=== PATIENT | male | born 1950 | race Caucasian/White ===

== ENCOUNTER 2019-04-05 10:41 | Day surgery (SDC) | payer MEDICARE, BC ==
[~2019-04-05] VITALS: Ht 175.3 cm; Wt 103.4 kg
[~2019-04-05 10:41] MED LIST: AMLO10TA PO; ATOR10TA70 PO; BUDE10.2 INH; CHOL50004 PO; CLOP75TA15 PO; CYA500T PO; FURO-150 PO; INSU100C4 SQ; INSU100V9 SQ; LOSA100T57 PO; PRAZ5CAP PO; TRAZ150T78 PO
[2019-04-05] MEDS ORDERED: normal saline 1000ml 1,000 ML IV SCH (11:05)
[2019-04-05 11:15] VITALS: BP 166/59
[2019-04-05] MEDS ORDERED: dextrose 50%-water 50ml dispensing syringe IV ONE (11:21)
--- NOTE | 2019-04-05 11:26 | NUR ---
PT'S blood sugar was 52, denied any symptoms. Administered 25 grams of D50. Will reassess BS in 15 min. Family at bedside. Education given.
[2019-04-05 11:31] LABS: BASOPHILS % (AUTO) 0.3 % (0-1); EOSINOPHILS # (AUTO) 2.7 X10'3 (0-0.9); EOSINOPHILS % (AUTO) 34.6 % (0-6); HEMATOCRIT 24.4 % (42.0-52.0); HEMOGLOBIN 8.3 g/dl (14.0-17.9); LYMPHOCYTES # (AUTO) 1.1 X10'3 (1.1-4.8); LYMPHOCYTES % (AUTO) 13.7 % (21-51); MEAN CORPUSCULAR HEMOGLOBIN 32.2 PG (27.0-31.0); MEAN CORPUSCULAR HGB CONC 33.9 g/dL (33.0-36.5); MEAN PLATELET VOLUME 8.6 FL (7.4-10.4); MONOCYTES # (AUTO) 0.2 X10'3 (0-0.9); MONOCYTES % (AUTO) 2.5 % (2-12); NEUTROPHILS # (AUTO) 3.8 X10'3 (1.8-7.7); NEUTROPHILS % (AUTO) 48.9 % (42-75); PLATELET COUNT 176 X10'3 (140-440); RED BLOOD COUNT 2.57 X10'6 (4.70-6.10); RED CELL DISTRIBUTION WIDTH 14.4 % (11.5-14.5); WHITE BLOOD COUNT 7.9 X10'3 (4.5-11.0)
[2019-04-05 11:44] LABS: ALBUMIN 2.2 G/DL (3.4-5.0); ANION GAP 6 (8-16); BLOOD UREA NITROGEN 70 MG/DL (7-18); CALCIUM 8.6 MG/DL (8.5-10.1); CHLORIDE 105 MMOL/L (99-107); CREATININE 4.67 MG/DL (0.60-1.10); GLUCOSE 60 MG/DL (70-104); POTASSIUM 3.9 MMOL/L (3.5-5.1); SODIUM 139 MMOL/L (135-145); TOTAL CARBON DIOXIDE 28.3 MMOL/L (24-32); eGFR 13 ML/MIN
[2019-04-05] MEDS ORDERED: DILT240C90 PO (11:47)
[2019-04-05] MEDS ORDERED: PRAZ2CAP2 PO (11:47)
[2019-04-05] MEDS ORDERED: CLON0.2T PO (11:47)
[2019-04-05] MEDS ORDERED: HYDR100T27 PO (11:47)
[2019-04-05] MEDS ORDERED: METO25TA6 PO (11:47)
[2019-04-05] MEDS ORDERED: ISOS30TA6 PO (11:47)
[2019-04-05] MEDS ORDERED: ASPI81TA52 PO (11:47)
[2019-04-05] MEDS ORDERED: MULT-1085 PO (11:47)
[2019-04-05] MEDS ORDERED: BUPR150T8 PO (11:47)
[2019-04-05] MEDS ORDERED: ATOR40TA71 PO (11:47)
[2019-04-05] MEDS ORDERED: DOXE10CA2 PO (11:47)
[2019-04-05 11:56] LABS: PLATELET ESTIMATE NORMAL; TOTAL CELLS COUNTED 100
[2019-04-05] MEDS ORDERED: midazolam 2 mg/2 ml injection IV PRN (12:35)
[2019-04-05] MEDS ORDERED: fentaNYL/PF 50MCG/1 ML 2ML syringe IV PRN (12:35)
[2019-04-05] MEDS ORDERED: heparin 1,000 units/ml 10ml inj ICATH ONE (12:35)
[2019-04-05] MEDS ORDERED: LIDOcaine 1%/PF 5ML 10 MG/ML VIAL SQ ONE (12:35)
[2019-04-05] MEDS ORDERED: heparin 1,000unit/ml 10ml vial 10 ML ONE (12:38)
[2019-04-05] MEDS ORDERED: LIDOcaine 1%/PF 5ML 10 MG/ML VIAL ONE (12:38)
[2019-04-05] MEDS ORDERED: midazolam 2 mg/2 ml injection ONE (12:53)
[2019-04-05] MEDS ORDERED: fentaNYL/PF 50MCG/1 ML 2ML syringe ONE (12:53)
[2019-04-05 13:45] VITALS: BP 170/65
[2019-04-05 14:00] VITALS: BP 165/70
[2019-04-05 14:15] VITALS: BP 171/61
[2019-04-05 14:30] VITALS: BP 172/52
== END 2019-04-05 14:55 | disposition home or self-care (01) ==
LOC: SSTAY O 10:41
PROVIDERS: ATTEND Radiology Diagnostic Radiology
DX: E11.22 Type 2 diabetes mellitus with diabetic chronic kidney disease (principal); N18.4 Chronic kidney disease, stage 4 (severe); Z88.8 Allergy status to other drugs, medicaments and biological substances; Z79.82 Long term (current) use of aspirin; Z79.899 Other long term (current) drug therapy; Z79.4 Long term (current) use of insulin
CPT/HCPCS: 36415; 36558; 76937; 77001; 80048; 82948; 85025; 99152; 99153; C1750; C1894; J1644; J2001; J2250; J3010; J7030; A9270

== ENCOUNTER 2019-11-03 11:04 | Day surgery (SDC) | payer MEDICARE ==
[~2019-11-03] VITALS: Ht 175.3 cm; Wt 94.7 kg
[~2019-11-03 11:04] MED LIST changes: -AMLO10TA PO; +ASPI81TA52 PO; -ATOR10TA70 PO; +ATOR40TA71 PO; +BUPR150T8 PO; +CLON0.2T PO; -CYA500T PO; +CYAN500T63 PO; +DILT240C90 PO; +DOXE10CA2 PO; +HYDR100T27 PO; +ISOS30TA6 PO; -LOSA100T57 PO; +METO25TA6 PO; +MULT-1085 PO; +PRAZ2CAP2 PO; -PRAZ5CAP PO; -TRAZ150T78 PO
[2019-11-03] MEDS ORDERED: normal saline 1000ml 1,000 ML IV SCH (11:25)
[2019-11-03] MEDS ORDERED: VIT1TABL50 PO (11:38)
[2019-11-03] MEDS ORDERED: diabetic med (11:38)
[2019-11-03] MEDS ORDERED: PHO667C PO (11:38)
[2019-11-03 11:57] LABS: BASOPHILS % (AUTO) 0.3 % (0-1); EOSINOPHILS # (AUTO) 3.2 X10'3 (0-0.9); HEMATOCRIT 34.9 % (42.0-52.0); HEMOGLOBIN 11.9 g/dl (14.0-17.9); LYMPHOCYTES % (AUTO) 10.5 % (21-51); MEAN CORPUSCULAR HEMOGLOBIN 33.1 PG (27.0-31.0); MEAN CORPUSCULAR HGB CONC 34.2 g/dL (33.0-36.5); MEAN CORPUSCULAR VOLUME 96.8 FL (78-98); MEAN PLATELET VOLUME 7.5 FL (7.4-10.4); MONOCYTES # (AUTO) 0.2 X10'3 (0-0.9); MONOCYTES % (AUTO) 2.3 % (2-12); NEUTROPHILS # (AUTO) 4.9 X10'3 (1.8-7.7); NEUTROPHILS % (AUTO) 52.9 % (42-75); PLATELET COUNT 235 X10'3 (140-440); RED BLOOD COUNT 3.61 X10'6 (4.70-6.10); RED CELL DISTRIBUTION WIDTH 13.2 % (11.5-14.5); WHITE BLOOD COUNT 9.4 X10'3 (4.5-11.0)
[2019-11-03 12:00] VITALS: BP 152/68
[2019-11-03 12:02] LABS: ALBUMIN 2.7 G/DL (3.4-5.0); ANION GAP 10 (8-16); BLOOD UREA NITROGEN 108 MG/DL (7-18); BUN/CREATININE RATIO 14.2 (5.4-32.0); CALCIUM 8.4 MG/DL (8.5-10.1); CHLORIDE 100 MMOL/L (99-107); CREATININE 7.59 MG/DL (0.60-1.10); GLUCOSE 208 MG/DL (70-104); POTASSIUM 4.1 MMOL/L (3.5-5.1); SODIUM 137 MMOL/L (135-145); TOTAL CARBON DIOXIDE 27.5 MMOL/L (24-32); eGFR 7 ML/MIN
[2019-11-03] MEDS ORDERED: midazolam 2 mg/2 ml injection IV PRN (12:25)
[2019-11-03] MEDS ORDERED: fentaNYL/PF 50MCG/1 ML 2ML syringe IV PRN (12:25)
[2019-11-03] MEDS ORDERED: LIDOcaine 1% (10mg/ml) 2ml vial SQ ONE (12:25)
[2019-11-03] MEDS ORDERED: heparin 1,000 units/ml 10ml inj ICATH ONE (12:25)
[2019-11-03 12:43] LABS: TOTAL CELLS COUNTED 100
[2019-11-03 12:44] LABS: PLATELET ESTIMATE NORMAL
[2019-11-03] MEDS ORDERED: fentaNYL/PF 50MCG/1 ML 2ML syringe ONE (12:47)
[2019-11-03] MEDS ORDERED: heparin 1,000unit/ml 10ml vial 10 ML ONE (12:47)
[2019-11-03] MEDS ORDERED: midazolam 2 mg/2 ml injection ONE (12:47)
[2019-11-03] MEDS ORDERED: LIDOcaine 1%/PF 5ML 10 MG/ML VIAL ONE (12:47)
[2019-11-03 14:00] VITALS: BP 166/81
[2019-11-03 14:15] VITALS: BP 154/65
[2019-11-03 14:30] VITALS: BP 151/107
[2019-11-03 14:45] VITALS: BP 170/62
[2019-11-03 15:00] VITALS: BP 149/57
== END 2019-11-03 15:00 | disposition home or self-care (01) ==
LOC: SSTAY O 11:04
PROVIDERS: ATTEND Radiology Diagnostic Radiology
DX: T82.868A Thrombosis due to vascular prosthetic devices, implants and grafts, initial encounter (principal); N18.9 Chronic kidney disease, unspecified; Z88.8 Allergy status to other drugs, medicaments and biological substances; Z79.899 Other long term (current) drug therapy; Z79.82 Long term (current) use of aspirin; Y83.2 Surgical operation with anastomosis, bypass or graft as the cause of abnormal reaction of the patient, or of later complication, without mention of misadventure at the time of the procedure; Y92.89 Other specified places as the place of occurrence of the external cause
CPT/HCPCS: 36415; 36558; 76937; 77001; 80048; 82948; 85025; 85610; 99152; 99153; C1750; C1769; C1894; J1644; J2250; J3010; J7030; A9270

== ENCOUNTER 2019-11-10 08:31 | Day surgery (SDC) | payer MEDICARE ==
[~2019-11-10] VITALS: Ht 175.3 cm; Wt 96.3 kg
[2019-11-10] VITALS (7 sets, daily range): BP systolic 123–161; BP diastolic 56–75
[~2019-11-10 08:31] MED LIST changes: -BUDE10.2 INH; -CLON0.2T PO; -CLOP75TA15 PO; -HYDR100T27 PO; -INSU100C4 SQ; -INSU100V9 SQ; +PHO667C PO; +VIT1TABL50 PO; +diabetic med
[2019-11-10] MEDS ORDERED: LIDOcaine 1%/PF 5ML 10 MG/ML VIAL SQ ONE (08:50)
[2019-11-10] MEDS ORDERED: heparin 1,000 UNITS/NS 500ml 500 ML ICATH ONE (08:50)
[2019-11-10] MEDS ORDERED: fentaNYL/PF 50MCG/1 ML 2ML syringe IV PRN (08:50)
[2019-11-10] MEDS ORDERED: normal saline 1000ml 1,000 ML IV SCH (08:50)
[2019-11-10] MEDS ORDERED: midazolam 2 mg/2 ml injection IV PRN (08:50)
[2019-11-10] MEDS ORDERED: LIDOcaine 1% (10mg/ml) 2ml vial SQ ONE (08:55)
[2019-11-10] MEDS ORDERED: heparin 1,000 UNITS/NS 500ml 500 ML ONE (09:29)
[2019-11-10] MEDS ORDERED: LIDOcaine 1%/PF 5ML 10 MG/ML VIAL ONE (09:29)
[2019-11-10] MEDS ORDERED: iohexol 300mg/ml 100ml inj. ONE (09:29)
[2019-11-10] MEDS ORDERED: fentaNYL/PF 50MCG/1 ML 2ML syringe ONE ×3 (09:29→10:35)
[2019-11-10] MEDS ORDERED: midazolam 2 mg/2 ml injection ONE ×2 (09:29→10:12)
[2019-11-10 09:35] LABS: BASOPHILS # (AUTO) 0.1 X10'3 (0-0.2); BASOPHILS % (AUTO) 0.8 % (0-1); EOSINOPHILS # (AUTO) 2.5 X10'3 (0-0.9); EOSINOPHILS % (AUTO) 30.9 % (0-6); HEMATOCRIT 30.3 % (42.0-52.0); HEMOGLOBIN 10.2 g/dl (14.0-17.9); LYMPHOCYTES # (AUTO) 1.2 X10'3 (1.1-4.8); LYMPHOCYTES % (AUTO) 14.6 % (21-51); MEAN CORPUSCULAR HGB CONC 33.6 g/dL (33.0-36.5); MEAN CORPUSCULAR VOLUME 98.2 FL (78-98); MEAN PLATELET VOLUME 7.8 FL (7.4-10.4); MONOCYTES # (AUTO) 0.3 X10'3 (0-0.9); MONOCYTES % (AUTO) 3.8 % (2-12); NEUTROPHILS % (AUTO) 49.9 % (42-75); PLATELET COUNT 194 X10'3 (140-440); RED BLOOD COUNT 3.09 X10'6 (4.70-6.10); RED CELL DISTRIBUTION WIDTH 13.4 % (11.5-14.5)
[2019-11-10 09:45] LABS: ALBUMIN 2.4 G/DL (3.4-5.0); ANION GAP 8 (8-16); BLOOD UREA NITROGEN 90 MG/DL (7-18); BUN/CREATININE RATIO 14.4 (5.4-32.0); CALCIUM 8.4 MG/DL (8.5-10.1); CHLORIDE 102 MMOL/L (99-107); CREATININE 6.23 MG/DL (0.60-1.10); GLUCOSE 325 MG/DL (70-104); POTASSIUM 4.3 MMOL/L (3.5-5.1); SODIUM 137 MMOL/L (135-145); TOTAL CARBON DIOXIDE 26.7 MMOL/L (24-32); eGFR 9 ML/MIN
[2019-11-10 10:49] LABS: TOTAL CELLS COUNTED 100
[2019-11-10 10:52] LABS: PLATELET ESTIMATE NORMAL
== END 2019-11-10 13:00 | disposition home or self-care (01) ==
LOC: SSTAY O 08:31
PROVIDERS: ATTEND Radiology Diagnostic Radiology
DX: T82.858A Stenosis of other vascular prosthetic devices, implants and grafts, initial encounter (principal); I25.10 Atherosclerotic heart disease of native coronary artery without angina pectoris; N40.0 Benign prostatic hyperplasia without lower urinary tract symptoms; I12.9 Hypertensive chronic kidney disease with stage 1 through stage 4 chronic kidney disease, or unspecified chronic kidney disease; E10.22 Type 1 diabetes mellitus with diabetic chronic kidney disease; N18.3 Chronic kidney disease, stage 3 (moderate); Z88.8 Allergy status to other drugs, medicaments and biological substances; Z79.899 Other long term (current) drug therapy; Z79.82 Long term (current) use of aspirin; Z80.41 Family history of malignant neoplasm of ovary; Y83.2 Surgical operation with anastomosis, bypass or graft as the cause of abnormal reaction of the patient, or of later complication, without mention of misadventure at the time of the procedure; Y92.89 Other specified places as the place of occurrence of the external cause
CPT/HCPCS: 36415; 36902; 80048; 85025; 85610; 99152; 99153; C1725; C1769; C1894; J1644; J2001; J2250; J3010; Q9967; J7030

== ENCOUNTER 2020-11-06 12:34 | Emergency (ER) | payer OTHER, MEDICARE ==
[~2020-11-06] VITALS: Ht 175.3 cm; Wt 103.4 kg
[~2020-11-06 12:34] MED LIST changes: -CYAN500T63 PO; +CYAN500T64 PO
[2020-11-06] MEDS ORDERED: furosemide 10 MG/1 ML 10ml inj IV ONE (14:10)
[2020-11-06 14:34] LABS: BASOPHILS # (AUTO) 0.1 X10'3 (0-0.2); BASOPHILS % (AUTO) 0.5 % (0-1); EOSINOPHILS # (AUTO) 4.8 X10'3 (0-0.9); HEMATOCRIT 29.8 % (42.0-52.0); HEMOGLOBIN 9.9 g/dl (14.0-17.9); LYMPHOCYTES # (AUTO) 1.5 X10'3 (1.1-4.8); LYMPHOCYTES % (AUTO) 11.8 % (21-51); MEAN CORPUSCULAR HEMOGLOBIN 33.9 PG (27.0-31.0); MEAN CORPUSCULAR HGB CONC 33.2 g/dL (33.0-36.5); MEAN PLATELET VOLUME 8.4 FL (7.4-10.4); MONOCYTES # (AUTO) 0.4 X10'3 (0-0.9); MONOCYTES % (AUTO) 2.9 % (2-12); NEUTROPHILS # (AUTO) 6.2 X10'3 (1.8-7.7); NEUTROPHILS % (AUTO) 47.8 % (42-75); PLATELET COUNT 186 X10'3 (140-440); RED BLOOD COUNT 2.92 X10'6 (4.70-6.10)
[2020-11-06 14:48] LABS: ALANINE AMINOTRANSFERASE 31 U/L (12-78); ALBUMIN 3.2 G/DL (3.4-5.0); ALBUMIN/GLOBULIN RATIO 0.9 (1.1-1.5); ALKALINE PHOSPHATASE 139 IU/L (46-116); ANION GAP 9 (8-16); ASPARTATE AMINO TRANSFERASE 14 U/L (10-37); BILIRUBIN,TOTAL 0.3 MG/DL (0.1-1.0); BLOOD UREA NITROGEN 50 MG/DL (7-18); BUN/CREATININE RATIO 9.1 (5.4-32.0); CALCIUM 9.1 MG/DL (8.5-10.1); CHLORIDE 100 MMOL/L (99-107); CREATININE 5.52 MG/DL (0.60-1.10); GLUCOSE 313 MG/DL (70-104); SODIUM 137 MMOL/L (135-145); TOTAL CARBON DIOXIDE 28.4 MMOL/L (24-32); TOTAL PROTEIN 6.7 G/DL (6.4-8.2); eGFR 10 ML/MIN
[2020-11-06] MEDS ORDERED: CEPH250T PO (15:05)
[2020-11-06 15:18] VITALS: BP 142/54
[2020-11-06 15:36] LABS: TOTAL CELLS COUNTED 100
[2020-11-06 15:37] LABS: PLATELET ESTIMATE NORMAL
[2020-11-06 15:38] LABS: POLYCHROMASIA FEW; TEAR DROP CELLS FEW
== END 2020-11-06 15:25 | disposition home or self-care (01) ==
LOC: ER 12:34
DX: L03.116 Cellulitis of left lower limb (principal); N18.6 End stage renal disease; D53.9 Nutritional anemia, unspecified; Z85.9 Personal history of malignant neoplasm, unspecified; Z88.8 Allergy status to other drugs, medicaments and biological substances; Z79.82 Long term (current) use of aspirin; Z79.2 Long term (current) use of antibiotics; Z79.899 Other long term (current) drug therapy
CPT/HCPCS: 36415; 80053; 85007; 85025; 93971; 96374; 99284; J1940

== ENCOUNTER 2022-07-09 09:16 | Day surgery (SDC) | payer OTHER ==
[~2022-07-09] VITALS: Ht 175.3 cm; Wt 111.4 kg
[2022-07-09] VITALS (10 sets, daily range): BP systolic 141–172; BP diastolic 66–76
[~2022-07-09 09:16] MED LIST changes: -CYAN500T64 PO; +CYAN500T71 PO; -ISOS30TA6 PO; +ISOS30TA84 PO; +LOP25T PO; -METO25TA6 PO
[2022-07-09] MEDS ORDERED: nitroGLYCERIN 0.4mg SUBLingual tab SL PRN (09:35)
[2022-07-09] MEDS ORDERED: LORazepam 0.5 MG tablet PO PRN (09:35)
[2022-07-09] MEDS ORDERED: diphenhydrAMINE 25mg capsule PO PRN (09:35)
[2022-07-09] MEDS ORDERED: normal saline 1,000 ML IV SCH (09:35)
[2022-07-09] MEDS ORDERED: INSU100I8 SQ (09:53)
[2022-07-09] MEDS ORDERED: HYDR100T27 PO (09:53)
[2022-07-09] MEDS ORDERED: LANTUS SQ (09:53)
--- NOTE | 2022-07-09 10:00 | NUR ---
Patient states he can't lay down flat for 6 hours because he has a hard time breathing and he normally sleeps in a recliner. Notified Dr. Weller and Dr. Weller states he will need to lay flat after the procedure and if he doesn't feel like he can, he can make the decision to not move forward. Spoke with patient and he states he will just try so he can get it done.
[2022-07-09] MEDS ORDERED: fentaNYL/PF 50MCG/1 ML 2ML syringe ONE (12:48)
[2022-07-09] MEDS ORDERED: LIDOcaine 1%/PF 5ML 10 MG/ML VIAL ONE (12:48)
[2022-07-09] MEDS ORDERED: iohexol 350MG/ML 100ml bottle IV ONE ×2 (12:48→13:28)
[2022-07-09] MEDS ORDERED: midazolam 1 mg/ML 2ml injection ONE (12:48)
[2022-07-09] MEDS ORDERED: hydrALAZINE 20mg/ml inj. IV ONE (13:42)
[2022-07-09] MEDS ORDERED: nitroGLYCERIN-Tridil 50MG/D5W 250 ML IV ONE (13:51)
[2022-07-09] MEDS ORDERED: normal saline 1000ml 1,000 ML IV SCH (14:35)
[2022-07-09] MEDS ORDERED: ondansetron/PF 4mg/2ml inj IV PRN (14:35)
[2022-07-09] MEDS ORDERED: OXAZEpam 15mg capsule PO PRN (14:35)
[2022-07-09] MEDS ORDERED: HYDROcodone/acetaminophen 5mg/325mg tablet PO PRN (14:35)
[2022-07-09] MEDS ORDERED: HYDROcodone/acetaminophen 10/325mg tab PO PRN (14:35)
[2022-07-09] MEDS ORDERED: proCHLORperazine 10 MG/2 ml inj IV PRN (14:35)
--- NOTE | 2022-07-09 15:15 | NUR ---
Patient keeps coughing and is very anxious about laying flat. Bed is angled up as high as it will go. Patient complains of 6/10 pain in his right lower ribcage from coughing. Serax and [place] administered for pain and anxiety. Will continue to monitor.
--- NOTE | 2022-07-09 15:45 | NUR ---
Patient now resting comfortably, no longer coughing and no longer c/o pain.
== END 2022-07-09 20:00 | disposition home or self-care (01) ==
LOC: SSTAY O 09:16
PROVIDERS: ATTEND Internal Medicine Cardiovascular Disease
DX: I25.10 Atherosclerotic heart disease of native coronary artery without angina pectoris (principal); I25.82 Chronic total occlusion of coronary artery; I10 Essential (primary) hypertension; E78.5 Hyperlipidemia, unspecified; E11.9 Type 2 diabetes mellitus without complications; J44.9 Chronic obstructive pulmonary disease, unspecified; Z95.0 Presence of cardiac pacemaker; G47.33 Obstructive sleep apnea (adult) (pediatric); F43.10 Post-traumatic stress disorder, unspecified; F32.9 Major depressive disorder, single episode, unspecified; Z95.5 Presence of coronary angioplasty implant and graft; Z87.891 Personal history of nicotine dependence; Z79.899 Other long term (current) drug therapy; Z98.890 Other specified postprocedural states
CPT/HCPCS: 36415; 82948; 83880; 84484; 93005; 93459; 99152; 99153; C1760; C1769; J0360; J1644; J2250; J3010; J3490; J7030; Q0163; Q9967; A4620; A6258